=== PATIENT | female | born 1985 | race Caucasian/White ===

== ENCOUNTER 2017-01-11 08:57 | Outpatient (CLI) | payer OTHER | END 2017-01-11 23:00 | LOC: LAB SRH 08:57 | DX: O20.0 Threatened abortion (principal) | CPT/HCPCS: 90074; 90197 ==

== ENCOUNTER 2017-01-15 09:21 | Outpatient (CLI) | payer OTHER | END 2017-01-15 23:00 | LOC: LAB SRH 09:21 | DX: O20.0 Threatened abortion (principal) | CPT/HCPCS: 90074; 90197 ==